=== PATIENT | male | born 1990 | race Caucasian/White ===

== ENCOUNTER 2024-10-15 09:26 | Day surgery (SDC) | payer SELFPAY ==
[2024-10-15] VITALS (8 sets, daily range): BP systolic 106–141; BP diastolic 73–94; PULSE 80–89; RESP 12–20; TEMP 36.1–36.7; O2SAT 97–100; BMI 21.6; BMI 20.7
--- NOTE | ~2024-10-15 | XR_ITS ---
XR abdomen/kub 1V 10/15/2024 09:43 Indication: Preop ESWL Procedure: KUB Comparison: No prior studies for comparison. Findings: There is a left renal stone. There are pelvic phleboliths. Nonobstructive bowel gas pattern . Moderate colonic fecal loading. No acute osseous abnormality. Impression: 1: Left nephrolithiasis. Reviewed, dictated and finalized at location A. Impression: 1: Left nephrolithiasis.
--- NOTE | 2024-10-15 08:27 | PC.NURSE ---
Report to the Outpatient Waiting Room, entrance under the green pavilion located off [facility], at time _0930_ on date _[id number]_. Planned Procedure Time: _1130_.? Time changes happen often and if your time is changed the preop area will call you the afternoon before. - You and your visitor will be asked to self-screen and do not enter if you have any COVID symptoms. Please call surgeon if you need to reschedule. - A mask is optional within the hospital at this time. Patients may have clear liquids (water, carbonated beverages, clear teas, apple juice) until 3 hours prior to surgery with a maximum of 20 ounces. - No food from midnight until time of surgery and no smoking, or chewing tobacco (or any form of nicotine). No chewing gum, candy or mints. Take only the following medications with a SIP of water on the morning of surgery: __None DO NOT STOP ANY OF YOUR OTHER PRESCRIPTION MEDICATIONS PRIOR TO SURGERY EXCEPT THE FOLLOWING Hold all vitamins and supplements for 3 days per anesthesiologist. Medications to discontinue per physician Date to take last dose Please no make-up, nail serbian, hairspray, perfume, deodorant, or body powder the day of surgery.? No jewelry (including any body piercings) or valuables the day of surgery, leave them at home.? Please take a shower or bath the night before, or the morning of, surgery with an antibacterial soap.? Wear comfortable, loose fitting clothing.? - Jewelry must be removed prior to entering the operating room.? Rings and piercings that are not removed may be cut off. - The hospital will not accept responsibility for valuables.? - Please leave all valuables, including medications, at home the day of surgery. If you are going home after surgery, a licensed bus driver must drive you home.? - NO public transportation without another adult if you receive anesthesia. - We recommend that an adult stay with you for 24 hours following discharge. - We also recommend that you do not drive, make important decision, drink alcoholic beverages, or take any drugs that were not prescribed by your health care provider for at least 24 hours after your discharge time. Follow any additional instructions given to you from your surgeon. Telephone instructions given to _Mick___and asked if any additional questions and then verbalized understanding. Patient advised to call surgeon office or pre surgery nurse liaison [phone] if any additional questions.
--- NOTE | 2024-10-15 09:57 | PM.IMHP ---
H&P: HPI History of Present Illness Date/Time: 10/15/24 09:57 Chief Complaint: 1 cm proximal left ureteral calculus Narrative: 33-year-old male who was seen in the office by our nurse practitioner last week. CT scan reveals a 1 cm by probably 2-3 mm left proximal ureteral stone. He is now here for lithotripsy of the left ureteral calculus Review of Systems Review of Systems: All systems reviewed & are unremarkable except as noted in HPI and below PMFSH Social History Social History Smoking status: Never smoker Living arrangements: with family Spiritual care concerns: No Meds Home Medications and Allergies Home Medications ?Medication ?Instructions ?Recorded ?Confirmed ?Type No Home Medications 10/15/24 10/15/24 History Allergies Allergy/AdvReac Type Severity Reaction Status Date / Time No Known Allergies Allergy Verified 10/15/24 09:40 Exam Const: General: cooperative and comfortable Resp: Effort & Inspection: normal respiratory effort Cardio: Rate: regular rate Rhythm: regular rhythm Assessment and Plan Assessment and plan (1) Calculus of proximal left ureter: Code(s): N20.1 - Calculus of ureter Status: Acute Assessment and Plan: Proceed with lithotripsy of left proximal ureteral calculus
--- NOTE | 2024-10-15 09:58 | WPDHPUPDATE1 ---
History and Physical Update Update Date/Time: 10/15/24 09:58 History and Physical has been reviewed, including an updated exam of the patient. There are NO changes in the patient's condition. Risks, benefits, and alternatives have been discussed and questions answered. Patient agrees to proceed with procedure.
[2024-10-15 10:27] LABS: Add Urine Microscopic? YES; Appearance Urine Clear (Clear); Bacteria Urine None Seen /hpf; Bilirubin Urine Negative (Negative); Blood Urine Negative (Negative); Color Urine Yellow (Yellow); Glucose Urine UA Negative (Negative); Ketones Urine Negative (Negative); Leukocyte Esterase Ur Negative LEU/UL (Negative); Mucus Urine Present /lpf; Need Manual Microscopic Reviewed; Nitrate Urine Negative (Negative); Non Pathogenic Casts 0-2; Protein Urine Trace mg/dL (Negative); RBC Urine 0-2 /hpf (0-2); Specific Grav Ur 1.018 (1.001-1.035); Spermatozoa Urine Present; Squamous Epithelial Cell Urine None Seen /hpf (Few); Urobilinogen Urine 0.2 mg/dL (<2.0); WBC Urine 0-5 /hpf (0-3)
[2024-10-15 10:34] LABS: Prothrombin Time 13.3 Seconds (11.1-14.7)
[2024-10-15 10:35] LABS: Partial Thromboplastin Time 28.5 Seconds (22.3-36.8)
--- NOTE | 2024-10-15 12:08 | WPDANESEPPF ---
Anes - Initial Pre Proc Eval Procedure: Operation Date: 10/15/24 11:30 Proposed Procedures p Left Extracorporeal Shock Wave Lithotripsy, - Sarabjit Higgins MD s Cystoscopy, Left Ureteroscopy, Possible Left Retrograde Pyelogram, Possible Left Stone Extraction, Possible Left Stent Placement, Possible Holmium Laser - Sarabjit Higgins MD Date/Time: 10/15/24 12:08 Surgeon: Sarabjit Higgins MD Pre Op Diagnosis: left ureteral stone Patient Data Age: 33 Gender: M Height: 1.65 m Weight: 56.7 kg Last Vital Signs Temp 98.1 F 10/15/24 10:17 Pulse 87 10/15/24 10:17 Resp 14 10/15/24 10:17 BP 134/94 H 10/15/24 10:17 Pulse Ox 100 10/15/24 10:17 O2 Del Method Room Air 10/15/24 10:17 Allergies Allergy/AdvReac Type Severity Reaction Status Date / Time No Known Allergies Allergy Verified 10/15/24 10:15 Home Medications ?Medication ?Instructions ?Recorded ?Confirmed ?Type No Home Medications 10/15/24 10/15/24 History Laboratory Tests 10/15/24 09:53 PT 13.3 Seconds (11.1-14.7) INR 1.0 APTT 28.5 Seconds (22.3-36.8) Urine Color Yellow (Yellow) Urine Appearance Clear (Clear) Urine pH 6.0 (5.0-9.0) Ur Specific [place] 1.018 (1.001-1.035) Urine Protein Trace mg/dL (Negative) Urine Glucose (UA) Negative mg/dL (Negative) Urine Ketones Negative mg/dL (Negative) Ur Blood (Man) Negative (Negative) Urine Nitrate Negative (Negative) Urine Bilirubin Negative (Negative) Urine Urobilinogen 0.2 mg/dL (<2.0) Add Ur Microanalysis Reviewed Leukocyte Esterase Rfl Negative ENRIQUE/UL (Negative) Urine RBC 0-2 /hpf (0-2) Urine WBC 0-5 /hpf (0-3) Ur Squamous Epith Cells None seen /hpf (Few) Urine Bacteria None seen /hpf Urine Casts 0-2 Urine Mucus Present /lpf Sperm Presence Present Patient hx anesthesia problems: none Family hx anesthesia problems: none Results Review: All pre-operative results and documents have been reviewed as part of the pre-operative evaluation. [facility] Social History Social History Smoking status: Never smoker Living arrangements: with family Spiritual care concerns: No Anes - Eval Final PreProcedure Day of Procedure 10/15/24 12:08 Patient weight: normal Heart: regular rate and rhythm Lungs: clear to auscultation Airway: Mallampati scale class II Neurological: alert and oriented Last oral intake: >/= 8 hours ASA classification: II Emergent: no Anesthetic plan: proceed Anesthesia type and monitoring: general LMA and standard monitoring Results Review: All pre-operative results and documents have been reviewed as part of the pre-operative evaluation. Informed Consent: The patient's anesthetic plan and its attendant risks and benefits were discussed with the patient/family/POA. Questions were solicited and answers provided to the satisfaction of the patient/family/POA.
[2024-10-15] MEDS: ceFAZolin 2 GM/D5W 50 ML 2 GM/50 ML BAG IVPB (12:13)
--- NOTE | 2024-10-15 12:58 | W.PM.PROC2 ---
Procedure Note - Detailed Date of Procedure 10/15/24 Pre-op Diagnosis left ureteral stone Post-op Diagnosis Same Procedure Performed Lithotripsy of left ureteral calculus 1 cm Surgeon Sarabjit Higgins MD Anesthesia General Description of Procedure Patient was taken to the operative suite correctly identified. Once anesthesia was obtained was position with the stone localized in both planes. Three thousand shocks were given the stone. There appeared to be good fragmentation. Patient is taken recovery stable condition. He will follow-up in 7-10 days with KUB. This completes dictation patient. Please send a copy of op note to my office Estimated Blood Loss 0 Drains No Packing No Pathology None sent Complications No immediate complications Condition Stable Disposition PACU
[2024-10-15] MEDS: LACTATED RINGERS 1,000 ML 30 ML IV CONT ×2 (13:14)
[2024-10-15] MEDS: oxyCODONE HCL (*CRX) 5 MG TAB IR PO (14:20)
[2024-10-15] MEDS: fentaNYL CITRATE INJ (*CRX) 100 MCG/2 ML VIAL 25 MCG IV PUSH (14:39)
== END 2024-10-15 15:25 | disposition home or self-care (01) ==
PROVIDERS: Visit Provider Urology
PROC: (CPT 50590; principal; 2024-10-15 11:30)
DX: N20.1 Calculus of ureter (principal)
CPT/HCPCS: 50590; 36415; 74018; 81001; 85610; 85730; A9270; J0690; J2003; J2250; J2405; J2704; J3010; J7120

== ENCOUNTER 2024-10-28 13:01 | Outpatient (CLI) | payer SELFPAY ==
--- NOTE | ~2024-10-28 | XR_ITS ---
XR abdomen/kub 1V Ordering provider: Sarabjit Higgins MD History: . LT ureteral stone . Comparison: None. FINDINGS: BOWEL: Nonobstructive bowel gas pattern. Fecal material is loaded in the colon. ORGANOMEGALY: None. SIGNIFICANT PATHOLOGIC CALCIFICATIONS: None. Calcification seen in the pelvis are most likely phlebolith' s. OTHER: No free air is seen under the diaphragm. IMPRESSION: NO ACUTE ABDOMINAL FINDINGS. Constipation. Reviewed, dictated and finalized at location A.
== END 2024-10-28 13:02 | disposition home or self-care (01) ==
PROVIDERS: Visit Provider Urology
DX: N20.1 Calculus of ureter (principal)
CPT/HCPCS: 74018